=== PATIENT | male | born 1980 | race Two or more races ===

== ENCOUNTER 2023-05-14 09:41 | Emergency (ER) | payer OTHER ==
[~2023-05-14] VITALS: Ht 175.3 cm; Wt 145.0 kg
[2023-05-14] MEDS: LIDOCAINE 1% HCL (LOCAL ANESTH.) INJ 20ML MDV ONE (10:30)
[2023-05-14] MEDS: NEOMYCIN-BACITRACIN-POLYM UNITDOSE PKG TOP OINT TOP ONE (10:56)
[2023-05-14] MEDS: LIDOCAINE 1% (LOCAL ANESTH.) PF 5ml SDV ID ONE (11:01)
[2023-05-14] MEDS: TETANUS-DIPTH-ACEL PERTUSSIS 0.5ML SYR Tdap IM ONE (11:06)
[2023-05-14] MEDS: cefTRIAXone W LIDOCAINE 1 GM IM IM ONE (11:39)
[2023-05-14 12:48] VITALS: BP 110/63; PULSE 75; RESP 18; TEMP 99; O2SAT 98
== END 2023-05-14 12:50 ==
LOC: ER 09:41 → EDBD 09:41 → ER 12:50
DX: S51.812A Laceration without foreign body of left forearm, initial encounter (principal); R45.851 Suicidal ideations; X78.8XXA Intentional self-harm by other sharp object, initial encounter; Y93.89 Activity, other specified; Y92.89 Other specified places as the place of occurrence of the external cause; Y99.8 Other external cause status
CPT/HCPCS: 12004; 90471; 90715; 96372; 99284; J0696; J2001